=== PATIENT | male | born 1945 | race Caucasian/White ===

== ENCOUNTER 2021-03-10 12:28 | Inpatient (IN) | payer MEDICARE ==
[~2021-03-10] VITALS: Ht 160 cm; Wt 61.2 kg
--- NOTE | 2021-03-10 12:28 | NUR ---
PT BIB [facility] FOR MEDICAL EVAL PRIOR TO GEROPSYCH ADMISSION. ON 5150 HOLD. PER REPORT PT AGGRESSIVE TOWARDS STAFF AND RUNNING THRU TRAFFIC. PT IS AAOX2, NOT IN RESPIRATORY DISTRESS, V/S STABLE, KEPT RESTED AND COMFORTABLE. WILL CONTINUE TO MONITOR.
--- NOTE | 2021-03-10 12:36 | NUR ---
SEEN AND EXAMINED BY .
--- NOTE | 2021-03-10 12:43 | NUR ---
URINE SPECIMEN COLLECTED AND SENT TO LAB.
[2021-03-10] MEDS ORDERED: CEPH250S PO (12:56)
[2021-03-10] MEDS ORDERED: ATOR40TA PO (12:56)
[2021-03-10] MEDS ORDERED: CARV3.12 PO (12:56)
[2021-03-10] MEDS ORDERED: DIVA-78 PO (12:56)
[2021-03-10] MEDS ORDERED: LOSA50TA39 PO (12:56)
[2021-03-10] MEDS ORDERED: CRAN425C6 PO (12:56)
[2021-03-10] MEDS ORDERED: FAMO-131 PO (12:56)
[2021-03-10 13:05] LABS: BILIRUBIN,URINE Negative (NEGATIVE); COLOR,URINE YELLOW (YELLOW); LEUKOCYTE ESTERASE ,URINE Negative (NEGATIVE); NITRITE, URINE Negative (NEGATIVE); PROTEIN,URINE Negative (NEGATIVE); UGLUCOSE Negative (NEGATIVE)
[2021-03-10 13:06] LABS: BACTERIA,URINE Rare /HPF (None Seen); RBC,URINE NONE SEEN /HPF (0-2); SQUAMOUS EPITHELIAL CELL,UR Few /HPF (None Seen); WBC,URINE NONE SEEN /HPF (0-3)
--- NOTE | 2021-03-10 13:08 | NUR ---
MOVE SHEET SUBMITTED AND CALLED FOR BED.
[2021-03-10 13:10] LABS: BASOPHILS # (AUTO) 0.1 K/uL (0.0-0.2); BASOPHILS % (AUTO) 0.8 % (0.0-2.0); EOSINOPHILS % (AUTO) 2.7 % (0.0-6.0); HEMATOCRIT 41 % (39-51); HEMOGLOBIN 13.8 g/dL (13.5-17.5); LYMPHOCYTES # (AUTO) 1.7 K/uL (0.8-4.8); LYMPHOCYTES % (AUTO) 24.9 % (20.0-44.0); MEAN CORPUSCULAR HGB CONC 34 g/dl (31.0-36.0); MEAN CORPUSCULAR VOLUME 95 fL (80-96); MONOCYTES # (AUTO) 0.5 K/uL (0.1-1.30); MONOCYTES % (AUTO) 8.1 % (2.0-12.0); NEUTROPHILS # (AUTO) 4.3 K/uL (1.8-8.9); NEUTROPHILS % (AUTO) 63.5 % (43.0-81.0); PLATELET COUNT (AUTO) 177 K/uL (150-450); RED BLOOD CELL COUNT(AUTO) 4.34 MIL/uL (4.5-6.0); WHITE BLOOD COUNT (AUTO) 6.7 K/uL (4.3-11.0)
[2021-03-10 13:14] LABS: CARBON DIOXIDE 28 mmol/L (21-32); CHLORIDE 107 mmol/L (98-107); GLUCOSE 104 mg/dL (74-106); POTASSIUM 3.8 mmol/L (3.5-5.1); SODIUM SERUM 144 mmol/L (136-145); UREA NITROGEN, BLOOD 18 mg/dL (7-18)
[2021-03-10 13:20] LABS: ALANINE AMINOTRANSFERASE 49 U/L (12-78); ALBUMIN 4.1 g/dL (3.4-5.0); ALCOHOL, BLOOD < 3 mg/dL (0-0); ALKALINE PHOSPHATASE 79 U/L (46-116); ASPARTATE AMINOTRANSFERASE 31 U/L (15-37); BILIRUBIN,DIRECT 0.2 mg/dL (0.0-0.2); BILIRUBIN,TOTAL 0.7 mg/dL (0.2-1.0); TOTAL PROTEIN, SERUM 7.1 g/dL (6.4-8.2)
[2021-03-10 13:21] LABS: ACETAMINOPHEN < 2 ug/ml (10-30)
--- NOTE | 2021-03-10 13:47 | NUR ---
GOT BED 214-B
--- NOTE | 2021-03-10 13:49 | NUR ---
REPORT GIVEN TO MATTIE DIAZ FOR MINI.
[2021-03-10 14:51] VITALS: BP 146/77
[2021-03-10] MEDS ORDERED: MAG HYDROX/AL HYDROX/SIMETH 30 ML UDC PO PRN (15:00)
[2021-03-10] MEDS ORDERED: MAGNESIUM HYDROXIDE 30 ML UDC PO PRN (15:00)
[2021-03-10] MEDS ORDERED: BLOOD SUGAR DIAGNOSTIC 1 EACH STRIP IN ONE (15:00)
[2021-03-10] MEDS ORDERED: ACETAMINOPHEN 325 MG TABLET PO PRN (15:00)
--- NOTE | 2021-03-10 15:48 | NUR ---
GPS/RN RECEIVED PT FROM ER 0N 5150 FOR DTS ORIGINALLY FROM [facility] WHERE HE BECOME AGGRESSIVE. PT IS AMBULATORY NO ACUTE DISTRESS NOTED. ON FACE TO FACE ASSESSMENT NO SI OR HI REPORTED.DR DON CALLED FOR THE ORDERS. ORDERS RECEIVED AND CARRIED OUT. DR JANE MADE AWARE OF ADMISSION.UNABLE TO NOTIFY THE FAMILY MEMBER NOBODY BIBLICAL STUDIES PROFESSOR THE PHONE AND MESSAGE BOX IS FULL. PT STATES TO BE FULLY VACCINATED WITH MODERNA VACCINE.PROPERTY CHECKED FOR CONTRABAND AND VALUABLES SENT TO SAFE.
[2021-03-10 16:00] VITALS: BP 134/74
[2021-03-10 20:37] VITALS: BP 155/90
[2021-03-10] MEDS: TEMAZEPAM 7.5 MG CAPSULE PO PRN (20:48)
[2021-03-10] MEDS: ATORVASTATIN 40 MG TABLET PO SCH (21:25)
[2021-03-11 07:35] LABS: CHOLESTEROL 89 mg/dL (<200); HDL CHOLESTEROL 43 mg/dL (40-60); LDL 43 mg/dL (0-99); TRIGLYCERIDES 58 mg/dL (30-150)
[2021-03-11 08:00] VITALS: BP 132/55
[2021-03-11] MEDS: FAMOTIDINE (20 MG) 20 MG TABLET PO SCH (08:26)
[2021-03-11] MEDS: CARVEDILOL 3.125 MG TABLET PO SCH (08:27)
[2021-03-11 08:38] LABS: ALBUMIN 3.5 g/dL (3.4-5.0); BILIRUBIN,TOTAL 0.6 mg/dL (0.2-1.0); CALCIUM, SERUM 8.9 mg/dL (8.5-10.1); POTASSIUM 3.2 mmol/L (3.5-5.1); TOTAL PROTEIN, SERUM 6.1 g/dL (6.4-8.2)
[2021-03-11] MEDS ORDERED: POTASSIUM CHLORIDE 20 MEQ TAB.PRT.SR PO ONE ×2 (09:00→09:21)
[2021-03-11] MEDS: LOSARTAN POTASSIUM 50 MG TABLET PO SCH (09:17)
[2021-03-11] MEDS: LORAZEPAM 0.5 MG TABLET PO PRN (14:33)
--- NOTE | 2021-03-11 14:33 | NUR ---
RN-CO: ATIVAN 0.5 MG PO FOR AGITATION.
[2021-03-11 16:00] VITALS: BP 109/67
[2021-03-11 20:00] VITALS: BP 120/76
[2021-03-11 20:40] VITALS: BP 120/76
[2021-03-11] MEDS: ATORVASTATIN 40 MG TABLET PO SCH (21:16)
[2021-03-11] MEDS: TEMAZEPAM 7.5 MG CAPSULE PO PRN (21:45)
--- NOTE | 2021-03-11 21:45 | NUR ---
GPS-RN NOTES: INSOMNIA PATIENT C/O INABILITY TO SLEEP. PRN RESTORIL 7.5MG PO GIVEN ORDERED. WILL CONTINUE TO MONITOR.
[2021-03-12 08:00] VITALS: BP 140/75
[2021-03-12] MEDS: FAMOTIDINE (20 MG) 20 MG TABLET PO SCH (08:32)
[2021-03-12] MEDS: LOSARTAN POTASSIUM 50 MG TABLET PO SCH (08:32)
[2021-03-12] MEDS: CARVEDILOL 3.125 MG TABLET PO SCH (08:32)
[2021-03-12] MEDS ORDERED: ARIPIPRAZOLE 2 MG TABLET PO SCH (09:00)
--- NOTE | 2021-03-12 09:00 | NUR ---
RN NOTE- PT ALERT ORIENTED TO PERSON PLACE CONFUSED , MED COMPLIANT, NEEDS ATTENDED. ISOLATIVE
[2021-03-12 10:09] LABS: CALCIUM, SERUM 9.7 mg/dL (8.5-10.1); CREATININE 1.1 mg/dL (0.6-1.3); POTASSIUM 4.3 mmol/L (3.5-5.1)
--- NOTE | 2021-03-12 15:39 | NUR ---
Initial Discharge Plan: The pt. currently resides at [facility] [[address] [address]; [phone]]. Per pt. he would like to return there once ready for D.C. ALEX spoke with Alessandra from Admissions at [facility] who stated that the pt. can return once ready. ALEX will continue to collaborate with Psychiatrist to form a safe & proper D/C plan.
--- NOTE | 2021-03-12 15:39 | NUR ---
Point of Contact: ALEX called the pt.'s Point of Contact: Lilli Blue [phone] to gather collateral information and left voicemail with SW call back number.
[2021-03-12 16:00] VITALS: BP 123/71
[2021-03-12 20:00] VITALS: BP 123/59
[2021-03-12] MEDS: ATORVASTATIN 40 MG TABLET PO SCH (21:24)
[2021-03-12] MEDS: TEMAZEPAM 7.5 MG CAPSULE PO PRN (21:24)
[2021-03-12] MEDS: DIVALPROEX SODIUM 500 MG TABLET.DR PO SCH (21:24)
--- NOTE | 2021-03-12 21:24 | NUR ---
GPS RN NOTE PT REQUESTING FOR SLEEP MED. RESTORIL 7.5 MG PO GIVEN. CONTINUE TO MONITOR HIM.
--- NOTE | 2021-03-12 22:24 | NUR ---
GPS RN NOTE PT FALL BACK TO SLEEP
[2021-03-13 08:00] VITALS: BP 138/70
[2021-03-13] MEDS: LOSARTAN POTASSIUM 50 MG TABLET PO SCH (08:09)
[2021-03-13] MEDS: CARVEDILOL 3.125 MG TABLET PO SCH (08:09)
[2021-03-13] MEDS: DIVALPROEX SODIUM 500 MG TABLET.DR PO SCH ×2 (08:09→17:04)
[2021-03-13] MEDS: FAMOTIDINE (20 MG) 20 MG TABLET PO SCH (08:09)
[2021-03-13] MEDS: ARIPIPRAZOLE 2 MG TABLET PO SCH ×2 (08:13→17:04)
--- NOTE | 2021-03-13 09:00 | NUR ---
RN NOTE- UNCHANGED PT ALERT ORIENTED TO PERSON PLACE CONFUSED , MED COMPLIANT, NEEDS ATTENDED. ISOLATIVE
[2021-03-13 16:00] VITALS: BP 131/68
[2021-03-13 20:00] VITALS: BP 138/65
[2021-03-13] MEDS: ATORVASTATIN 40 MG TABLET PO SCH (21:41)
[2021-03-13] MEDS: TEMAZEPAM 7.5 MG CAPSULE PO PRN (21:41)
[2021-03-14] MEDS: FAMOTIDINE (20 MG) 20 MG TABLET PO SCH ×2 (07:30→08:06)
[2021-03-14 08:00] VITALS: BP 131/76
[2021-03-14] MEDS: DIVALPROEX SODIUM 500 MG TABLET.DR PO SCH ×3 (08:07→16:43)
[2021-03-14] MEDS: ARIPIPRAZOLE 2 MG TABLET PO SCH ×3 (08:07→16:42)
[2021-03-14] MEDS: LOSARTAN POTASSIUM 50 MG TABLET PO SCH ×2 (08:08→08:42)
[2021-03-14] MEDS: CARVEDILOL 3.125 MG TABLET PO SCH ×2 (08:08→08:41)
--- NOTE | 2021-03-14 08:43 | NUR ---
RN-CO: PATIENT GOT UPSET WHEN HIS MEDICATIONS WAS OFFERED, HE STATED " I DON'T NEED THAT ROZ MEDICATIONS!". REFUSED AGAIN WHEN I OFFERED THE SECOND TIME.
[2021-03-14 16:00] VITALS: BP 116/86
--- NOTE | 2021-03-14 16:43 | NUR ---
RN-CO: PT REFUSED HIS ABILIFY AND DEPAKOTE , HE STATED " I WON'T TAKE IT, YOU GUYS ARE SCREWING ME WITH THOSE MEDICATIONS." EXPLAINED THE BENEFITS BUT STILL REFUSED.
[2021-03-14] MEDS: LORAZEPAM 0.5 MG TABLET PO PRN ×2 (20:14→20:17)
--- NOTE | 2021-03-14 20:19 | NUR ---
GPS-RN NOTES: OFFERED PATIENT PRN ATIVAN 0.5MG PO DUE TO ANXIETY BUT PATIENT REFUSED. HE STATED "THEY POISONED ME LAST TIME, I DON'T WANT TO TAKE IT, FLUSH IT IN THE TOILET". EXPLAINED BENEFITS BUT PATIENT STILL REFUSED. WILL CONTINUE TO MONITOR.
[2021-03-14 20:33] VITALS: BP 159/86
[2021-03-14] MEDS: ATORVASTATIN 40 MG TABLET PO SCH (21:48)
--- NOTE | 2021-03-14 21:48 | NUR ---
GPS-RN NOTES: MED REFUSAL PATIENT REFUSED SCHEDULED ATORVASTATIN FOR TONIGHT. EXPLAINED RISKS AND BENEFITS BUT PATIENT CONTINUED TO REFUSE.
[2021-03-15] MEDS: FAMOTIDINE (20 MG) 20 MG TABLET PO SCH (07:30)
[2021-03-15 07:48] LABS: CALCIUM, SERUM 9.3 mg/dL (8.5-10.1); CREATININE 0.9 mg/dL (0.6-1.3); POTASSIUM 4.1 mmol/L (3.5-5.1)
[2021-03-15 08:00] VITALS: BP 142/69
[2021-03-15] MEDS: LOSARTAN POTASSIUM 50 MG TABLET PO SCH (09:00)
[2021-03-15] MEDS: ARIPIPRAZOLE 2 MG TABLET PO SCH ×2 (09:00→17:00)
[2021-03-15] MEDS: CARVEDILOL 3.125 MG TABLET PO SCH (09:00)
[2021-03-15] MEDS: DIVALPROEX SODIUM 500 MG TABLET.DR PO SCH ×2 (09:00→17:00)
--- NOTE | 2021-03-15 09:05 | NUR ---
RN-NOTES PATIENT REFUSED ALL AM MEDICATIONS DESPITE EXPLANATIONS RISK AND BENEFITS, STATED" I'M NOT GOING TO TAKE ANY MEDICATIONS AT ALL ". OFFERED X3 BUT PATIENT GETS ANGRY.
--- NOTE | 2021-03-15 11:33 | NUR ---
Probable Cause Hearing Pt's 5250 hold has been upheld for grave disability.
--- NOTE | 2021-03-15 14:53 | NUR ---
Received a call from Mimi from the court, Evelin hearing scheduled 03/16/21 @ 1:[address] Teixeira made aware.
--- NOTE | 2021-03-15 17:02 | NUR ---
RN-NOTES PATIENT CONT. REFUSING ALL 1700 MEDICATIONS DESPITE EXPLANATIONS RISK AND BENEFITS. OFFERED X3 .
[2021-03-15 20:00] VITALS: BP 164/85
[2021-03-15] MEDS: ATORVASTATIN 40 MG TABLET PO SCH (21:27)
[2021-03-16] MEDS: FAMOTIDINE (20 MG) 20 MG TABLET PO SCH (07:30)
[2021-03-16 08:00] VITALS: BP 146/76
[2021-03-16] MEDS: ARIPIPRAZOLE 2 MG TABLET PO SCH ×2 (09:00→17:00)
[2021-03-16] MEDS: DIVALPROEX SODIUM 500 MG TABLET.DR PO SCH ×2 (09:00→17:00)
[2021-03-16] MEDS: LOSARTAN POTASSIUM 50 MG TABLET PO SCH (09:00)
[2021-03-16] MEDS: CARVEDILOL 3.125 MG TABLET PO SCH (09:00)
--- NOTE | 2021-03-16 09:04 | NUR ---
GPS/RN PT REFUSED 0900 MEDS OFFERED X3
--- NOTE | 2021-03-16 15:47 | NUR ---
D/C Planning: Pt. has been cleared by psychiatrist for discharge back to [facility] [[address] [address] [facility] [address]; [phone]] on 03/19/2021. ALEX called [facility] and apoke to Alessandra who confirmed pt. can return on 03/19/2021. ALEX attempted to call pt.'s responsible republican Lilli [facility] [phone] and ALEX left voicemail informing them that pt. will be discharged on 03/19/2021 and aksed that family call SW back by 9 am on if they are not agreeable to D/C. ALEX notified pt. of discharge and he is agreeable.
[2021-03-16] MEDS ORDERED: OLANZAPINE 10 MG VIAL IM SCH (16:00)
[2021-03-16] MEDS ORDERED: OLANZAPINE 10 MG VIAL IM PRN (16:30)
[2021-03-16 20:16] VITALS: BP 123/69
[2021-03-16] MEDS: ATORVASTATIN 40 MG TABLET PO SCH (21:01)
[2021-03-16] MEDS: TEMAZEPAM 7.5 MG CAPSULE PO PRN (21:01)
--- NOTE | 2021-03-17 06:03 | NUR ---
GPS REGIONAL RETAIL SALES MANAGER Note: Pt compliant with his medication during shift, cooperative, had PRN Restoril @ 2101- effective, slept good 8 hrs during shift, no s/sx of pain or discomfort noted, no s/sx of acute distress noted. VSS , pt's needs attended and anticipated. Cont to monitor for safety.
[2021-03-17 08:00] VITALS: BP 132/72
[2021-03-17] MEDS: DIVALPROEX SODIUM 500 MG TABLET.DR PO SCH ×2 (08:53→16:39)
[2021-03-17] MEDS: FAMOTIDINE (20 MG) 20 MG TABLET PO SCH (08:53)
[2021-03-17] MEDS: LOSARTAN POTASSIUM 50 MG TABLET PO SCH (08:54)
[2021-03-17] MEDS: CARVEDILOL 3.125 MG TABLET PO SCH (08:54)
[2021-03-17] MEDS: ARIPIPRAZOLE 2 MG TABLET PO SCH ×2 (08:54→16:39)
[2021-03-17 16:00] VITALS: BP 141/65
[2021-03-17 20:40] VITALS: BP 125/68
[2021-03-17] MEDS: ATORVASTATIN 40 MG TABLET PO SCH (21:41)
[2021-03-18 08:00] VITALS: BP 144/61
[2021-03-18] MEDS: DIVALPROEX SODIUM 500 MG TABLET.DR PO SCH ×2 (08:48→17:42)
[2021-03-18] MEDS: FAMOTIDINE (20 MG) 20 MG TABLET PO SCH (08:49)
[2021-03-18] MEDS: LOSARTAN POTASSIUM 50 MG TABLET PO SCH (08:49)
[2021-03-18] MEDS: ARIPIPRAZOLE 2 MG TABLET PO SCH ×2 (08:49→17:42)
[2021-03-18] MEDS: CARVEDILOL 3.125 MG TABLET PO SCH (08:50)
[2021-03-18 16:00] VITALS: BP 112/55
[2021-03-18 20:08] VITALS: BP 116/76
[2021-03-18] MEDS: ATORVASTATIN 40 MG TABLET PO SCH (21:13)
[2021-03-18 21:28] VITALS: BP 116/76
--- NOTE | 2021-03-19 06:54 | NUR ---
RN NOTE COVID SWAB SENT TO LAB FOR PLACEMENT.
[2021-03-19 08:00] VITALS: BP 131/70
[2021-03-19] MEDS: DIVALPROEX SODIUM 500 MG TABLET.DR PO SCH (08:46)
[2021-03-19] MEDS: FAMOTIDINE (20 MG) 20 MG TABLET PO SCH (08:47)
[2021-03-19] MEDS: CARVEDILOL 3.125 MG TABLET PO SCH (08:47)
[2021-03-19 08:48] VITALS: BP 131/70
[2021-03-19] MEDS: LOSARTAN POTASSIUM 50 MG TABLET PO SCH (08:48)
[2021-03-19] MEDS ORDERED: ARIPIPRAZOLE 5 MG TABLET PO SCH (09:00)
--- NOTE | 2021-03-19 13:23 | NUR ---
Discharge Note: Pt. will be discharged back to [facility] [[address] [facility] [address]; [phone]] on 03/19/2021. Pt. will be transported via ambulance at 2 pm. SW left voicemail notifying pt.s family Lilli Unk [phone] of discharge. Currently, the pt. appears to be in a euthymic mood and presented with a calm affect. Pt. denies both suicidal and homicidal ideation as well as auditory and visual hallucinations. Pt. appears to be alert and oriented x2. Pt. is ambulatory with steady gait. Pt appears to be well-groomed and appropriately dressed. Pt will continue to be under the care of psychiatrist, Dr. Mancilla, located at [[address], [address] [place] [address]; TEL: ] and medical science liaison, Dr. Sai Cisneros, located at [phone]. The Choice of vendor form and the multidisciplinary exit care form was done, printed, signed, and given to the patient.
--- NOTE | 2021-03-19 13:53 | NUR ---
RN NOTE: REPORT CALLED TO HOLLIE PABLO AT [facility]
--- NOTE | 2021-03-19 14:40 | NUR ---
MEDICAL OFFICER NOTE: 75 YEAR OLD MALE DISCHARGED TO [facility] IN STABLE CONDITION. COMPLIANT WITH MEDICATIONS, COOPERATIVE WITH TREATMENT PLANS. PATIENT DENIES SI/HI AND INSTRUCTED TO GO TO THE CLOSEST ER IF DEVELOPING SI/HI. BEHAVIOR IMPROVED, PSYCHIATRIC TREATMENT PLANS MET, MEDICAL TREATMENT PLANS DEFERRED FOR CONTINUAL MONITORING. EDUCATED PT ABOUT AFTER CARE AND COPY PROVIDED. RETURNED PERSONAL BELONGINGS AND VALUABLES RETURNED TO PT. EDUCATED PT ABOUT AFTERCARE AND EXIT CARE AND COPY PROVIDED. MEDICATIONS RECONCILED WITH [facility]IM[facility]IAN MOBLEY AND DR. JAY HERRERA. REPORT CALLED TO [facility] FOR CONTINUITY OF CARE. PT UNABLE TO SIGN PAPERWORK DUE TO CONFUSION. SKIN INTACT ON ADMIT AND DISCHARGE. PATIENT LEFT THE UNIT VIA GURNEY WITH EMS PRESENT AT 1420.
== END 2021-03-19 14:40 | DRG 885 ==
LOC: ER 12:34 → GPS 13:48
PROVIDERS: ADMIT Psychiatry & Neurology Psychosomatic Medicine; ATTEND Family Medicine
DX: F25.9 Schizoaffective disorder, unspecified (principal); E87.0 Hyperosmolality and hypernatremia; F23 Brief psychotic disorder; F29 Unspecified psychosis not due to a substance or known physiological condition; E78.5 Hyperlipidemia, unspecified; E87.6 Hypokalemia; G30.9 Alzheimer's disease, unspecified; F02.80 Dementia in other diseases classified elsewhere, unspecified severity, without behavioral disturbance, psychotic disturbance, mood disturbance, and anxiety; I10 Essential (primary) hypertension; Z73.6 Limitation of activities due to disability; E86.1 Hypovolemia; Z20.822 Contact with and (suspected) exposure to COVID-19
CPT/HCPCS: 36415; 80048-TC; 80053-TC; 80061-TC; 80076-TC; 81001; 82962-TC; 85025-TC; 87081-TC; G0480; J3490

== ENCOUNTER 2021-11-20 19:29 | Inpatient (IN) | payer MEDICARE ==
[~2021-11-20] VITALS: Ht 165.1 cm; Wt 59.0 kg
[~2021-11-20 19:29] MED LIST: ATOR40TA PO; CARV3.12 PO; CEPH250S PO; CRAN425C6 PO; DIVA-78 PO; FAMO-131 PO; LOSA50TA39 PO
--- NOTE | 2021-11-20 20:05 | NUR ---
TAYLOR FROM SNF TO ER BED 11. AAOX4. NOT IN DISTRESSED. BROUGHT IN FOR INCREASED AGITATION TOWARDS STAFF AT THE FACILITY. PT DENIES ANY SUICIDAL NOR HOMICIDAL IDEATION. PT IS GOWN. COVID SWAB DONE AND SENT TO LAB
[2021-11-20 20:17] LABS: BASOPHILS % (AUTO) 0.6 % (0.0-2.0); EOSINOPHILS % (AUTO) 1.3 % (0.0-6.0); HEMATOCRIT 40 % (39-51); HEMOGLOBIN 13.7 g/dL (13.5-17.5); LYMPHOCYTES # (AUTO) 1.3 K/uL (0.8-4.8); LYMPHOCYTES % (AUTO) 25.2 % (20.0-44.0); MEAN CORPUSCULAR HGB CONC 34 g/dl (31.0-36.0); MEAN CORPUSCULAR VOLUME 96 fL (80-96); MONOCYTES # (AUTO) 0.7 K/uL (0.1-1.30); MONOCYTES % (AUTO) 12.5 % (2.0-12.0); NEUTROPHILS # (AUTO) 3.2 K/uL (1.8-8.9); NEUTROPHILS % (AUTO) 60.4 % (43.0-81.0); PLATELET COUNT (AUTO) 140 K/uL (150-450); RED BLOOD CELL COUNT(AUTO) 4.23 MIL/uL (4.5-6.0); WHITE BLOOD COUNT (AUTO) 5.3 K/uL (4.3-11.0)
--- NOTE | 2021-11-20 20:17 | NUR ---
COVID SWAB DONE AND SENT TO LAB
--- NOTE | 2021-11-20 20:31 | NUR ---
URINE SPECIMEN COLLECTED AND SENT TO LAB.
[2021-11-20 20:35] LABS: ACETAMINOPHEN 8 ug/ml (10-30); ALANINE AMINOTRANSFERASE 20 U/L (12-78); ALBUMIN 3.7 g/dL (3.4-5.0); ALKALINE PHOSPHATASE 63 U/L (46-116); ASPARTATE AMINOTRANSFERASE 16 U/L (15-37); BILIRUBIN,DIRECT 0.2 mg/dL (0.0-0.2); BILIRUBIN,TOTAL 0.6 mg/dL (0.2-1.0); CHLORIDE 105 mmol/L (98-107); CREATININE 1.2 mg/dL (0.6-1.3); GLUCOSE 109 mg/dL (74-106); POTASSIUM 3.3 mmol/L (3.5-5.1); SODIUM SERUM 141 mmol/L (136-145); TOTAL PROTEIN, SERUM 6.4 g/dL (6.4-8.2); UREA NITROGEN, BLOOD 24 mg/dL (7-18)
[2021-11-20 20:47] LABS: BILIRUBIN,URINE NEGATIVE (NEGATIVE); COLOR,URINE YELLOW (YELLOW); LEUKOCYTE ESTERASE ,URINE NEGATIVE (NEGATIVE); NITRITE, URINE NEGATIVE (NEGATIVE); PROTEIN,URINE NEGATIVE (NEGATIVE); UGLUCOSE NEGATIVE (NEGATIVE)
[2021-11-20 20:57] LABS: ALCOHOL, BLOOD < 3 mg/dL (0-0)
[2021-11-20 21:04] LABS: BACTERIA,URINE Rare /HPF (None Seen); RBC,URINE 0-2 /HPF (0-2); SQUAMOUS EPITHELIAL CELL,UR Few /HPF (None Seen)
[2021-11-20 21:19] LABS: CARBON DIOXIDE 28 mmol/L (21-32)
[2021-11-20 21:20] LABS: CALCIUM, SERUM 9.3 mg/dL (8.5-10.1)
--- NOTE | 2021-11-20 21:30 | NUR ---
MRSA SWAB COLLECTED AND SENT TO LAB. PATIENT'S BELONGINGS LIST DONE.
--- NOTE | 2021-11-20 21:54 | NUR ---
CALLED FOR REPORT RN NOT READY FOR REPORT.
--- NOTE | 2021-11-20 22:15 | NUR ---
REPORT GIVEN TO EMILY CHISHOLM
--- NOTE | 2021-11-20 22:40 | NUR ---
PT TRANSFERRED TO GPS
[2021-11-20] MEDS ORDERED: MAGNESIUM HYDROXIDE 30 ML UDC PO PRN (23:30)
[2021-11-20] MEDS ORDERED: POTASSIUM CHLORIDE 10 MEQ TABLET.SA PO ONE (23:30)
[2021-11-20] MEDS ORDERED: TEMAZEPAM 7.5 MG CAPSULE PO PRN (23:30)
[2021-11-20] MEDS ORDERED: BLOOD SUGAR DIAGNOSTIC 1 EACH STRIP IN ONE (23:30)
[2021-11-20] MEDS ORDERED: MAG HYDROX/AL HYDROX/SIMETH 30 ML UDC PO PRN (23:30)
--- NOTE | 2021-11-21 04:18 | NUR ---
GPS TRADE UNION OFFICIAL NOTES: RECEIVED A 76 Y/O MALE FROM ER ORIGINALLY FROM SNF. PATIENT IS ON A 5150 FOR GD. HOLD WAS PLACED ON 11/20/21 AT 2117. PER HOLD, PATIENT WAS BROUGHT TO [facility] ER FROM [facility] D/T INCREASED AGITATION, AGGRESSIVE BEHAVIOR TOWARDS STAFF AND REFUSING CARE. UPON FACE TO FACE EVALUATION, PATIENT IS ALERT AND ORIENTED X1, DISORIENTED, DISORGANIZED AND CONFUSED. PATIENT WAS GIVING INAPPROPRIATE ANSWERS TO QUESTIONS, MUMBLING AND PREOCCUPIED. PATIENT REFUSED TO SIGN ALL ADMISSION PAPERWORK. SKIN ASSESSMENT DONE/SKIN INTACT. PATIENT DENIES SI AT THIS TIME. DENIES PAIN. BS83MG/DL, MRSA PENDING. PATIENT HANDBOOK AND PRESCRIPTION MEDICATIONS GUIDE GIVEN TO PATIENT. BELONGINGS WERE INVENTORIED AND CHECKED FOR CONTRABAND. PATIENT OFFERED PNEUMONIA VACCINE BUT PATIENT REFUSED. PATIENT IS UNDER THE PSYCHIATRIC CARE OF DR. ESQUIVEL AND MEDICAL CARE OF MAXIMILIAN. BED IN LOW LOCKED POSITION. SIDE RAILS UP X2. SAFETY PRECAUTIONS MAINTAINED. ALL PATIENT CARE NEEDS HAVE BEEN MET ANTICIPATED. WILL CONTINUE TO MONITOR Q15 MINS FOR MOOD, SAFETY AND BEHAVIOR AND ENDORSE TO AM SHIFT.
[2021-11-21 05:41] VITALS: BP 134/72
[2021-11-21 07:26] LABS: ALANINE AMINOTRANSFERASE 19 U/L (12-78); ALBUMIN 3.4 g/dL (3.4-5.0); ALKALINE PHOSPHATASE 58 U/L (46-116); ASPARTATE AMINOTRANSFERASE 17 U/L (15-37); BILIRUBIN,TOTAL 0.6 mg/dL (0.2-1.0); CARBON DIOXIDE 16 mmol/L (21-32); CHLORIDE 107 mmol/L (98-107); GLUCOSE 87 mg/dL (74-106); POTASSIUM 3.5 mmol/L (3.5-5.1); SODIUM SERUM 142 mmol/L (136-145); UREA NITROGEN, BLOOD 22 mg/dL (7-18)
[2021-11-21 07:27] LABS: THYROID STIMULATING HORMONE 0.559 uIU/mL (0.358-3.74)
[2021-11-21 08:00] VITALS: BP 129/68
[2021-11-21] MEDS ORDERED: DIVALPROEX SODIUM 500 MG TABLET.DR PO SCH (09:00)
[2021-11-21] MEDS: DIVALPROEX SODIUM 125 MG CAP.SPRINK PO SCH ×2 (10:11→21:56)
[2021-11-21] MEDS: FAMOTIDINE (20 MG) 20 MG TABLET PO SCH (10:11)
[2021-11-21] MEDS: LOSARTAN POTASSIUM 50 MG TABLET PO SCH (10:12)
[2021-11-21] MEDS: CARVEDILOL 3.125 MG TABLET PO SCH (10:13)
[2021-11-21 11:09] LABS: CALCIUM, SERUM 9.1 mg/dL (8.5-10.1)
--- NOTE | 2021-11-21 12:58 | NUR ---
ALEX Initial Discharge Plan: Pt currently resides at [facility] located at [facility] [place] [address]; ([phone]). ALEX spoke with Octavio Diallo ([phone]) to confirm if pt is welcomed back. Per Octavio, she stated that pt will be transferred to [facility]. ALEX reached out to [facility], lisa Cheema ([phone]) to see if pt is accepted. ALEX will work with the MD, family, and pt to help coordinate appropriate dc.
--- NOTE | 2021-11-21 12:58 | NUR ---
ALEX Clinical Note: Pt placed on a 5150 for GD. Pt was aggressive at his facility and was uncooperative. Pt currently resides at [facility] located at [address] [place] [address]; ([phone]). ALEX spoke with Octavio Diallo ([phone]) to confirm if pt is welcomed back. Per Octavio, she stated that pt will be transferred to [facility]. ALEX reached out to [facility], lisa Cheema ([phone]) to see if pt is accepted.
--- NOTE | 2021-11-21 12:59 | NUR ---
Treatment Plan: Pt refused to sign treatment plan and was very confused.
--- NOTE | 2021-11-21 13:21 | NUR ---
ALEX Family Contact: SW attempted to contact pt's son Anderson ([phone]) and was unable to leave a voicemail due to mailbox being full.
--- NOTE | 2021-11-21 14:50 | NUR ---
VERY NEEDY,OUT AT DESK OFTEN.
[2021-11-21 16:00] VITALS: BP 104/57
[2021-11-21] MEDS: LORAZEPAM 0.5 MG TABLET PO PRN (17:52)
--- NOTE | 2021-11-21 17:59 | NUR ---
GIVEN ATIVAN FOR AGITATION.
[2021-11-21 19:58] VITALS: BP 118/64
[2021-11-21 20:00] VITALS: BP 118/64
[2021-11-21] MEDS: QUETIAPINE FUMARATE 25 MG TABLET PO SCH (21:56)
[2021-11-21] MEDS: ATORVASTATIN 40 MG TABLET PO SCH (22:01)
[2021-11-22] MEDS: LORAZEPAM 0.5 MG TABLET PO PRN (00:25)
--- NOTE | 2021-11-22 00:30 | NUR ---
placed in a ileana chair earlier d/t sleeping medication was given and for safety . refusing to stay in bed. he wonders into patients rooms. in the ileana chair he took the sheet i threw over the chair off and whipped it around at the nurses called security mr. SARGENT WANTED THE people around him arrested took po ativan now will monitor
--- NOTE | 2021-11-22 05:54 | NUR ---
closing notes: when placed in bed he will get OOB and walk in the corridors (unsteady) on his legs, and he wanders into other patients rooms. When redirected out of the room he will swing a closed fist at the nurse and tell her to get away, I need to grab him from falling over. With the assist two nurse able to place him into a gerichair and from there he pushed himself around the corridor. He falls asleep in the chair and takes a nap then wakes up and he is up and down the corridor in the gerichair Fluid offered Ativan given at 0030 for agitation hitting the nurses and using the sheet to whip it at here and shaking his fist at me
[2021-11-22 08:00] VITALS: BP 120/67
[2021-11-22] MEDS: FAMOTIDINE (20 MG) 20 MG TABLET PO SCH (08:46)
[2021-11-22] MEDS: LOSARTAN POTASSIUM 50 MG TABLET PO SCH (08:46)
[2021-11-22] MEDS: DIVALPROEX SODIUM 125 MG CAP.SPRINK PO SCH ×2 (08:46→20:34)
[2021-11-22] MEDS: CARVEDILOL 3.125 MG TABLET PO SCH (08:47)
--- NOTE | 2021-11-22 10:35 | NUR ---
SNF Contact: ALEX spoke with Deni from [facility] ([phone]) who stated that they are unable to accept pt due to financial issues. ALEX contacted Octavio ([phone]) from [facility] where pt is initially from and stated that [facility] denied pt. She requested for this racebook writer to fax to [facility] ([phone]). ALEX faxed pt's clinicals.
--- NOTE | 2021-11-22 11:08 | NUR ---
ALEX Family Contact: SW attempted to contact pt's son Anderson ([phone]) and was unable to leave a voicemail due to mailbox being full.
--- NOTE | 2021-11-22 11:30 | NUR ---
RN Notes: Received pt. in the ileana chair, confused, disorganized and irritable. Ate 75% for breakfast, compliant on meds. Pt. is confused and disorganized, pt. was reoriented to day, date, person, palce and situation and encouraged to attend group activity. Needs attended and will continue to monitor for safety.
[2021-11-22 16:00] VITALS: BP 138/81
[2021-11-22 20:00] VITALS: BP 132/72
--- NOTE | 2021-11-22 20:03 | NUR ---
RN NOTES: PATIENT IN BED RESTING , NO S/SX OF ACUTE DISTRESS NOTED. EASILY AGITATED, PARANOID, DISORGNIZED, DISHEVELED,WANDRING AROUND THE UNIT NEEDS FREQUENTLY REDIRECTIONS , NEEDY,HYPERVERBAL, UNKEMPT ,ENCOURAGED PT. TO VERBALIZATION OF THOUGHTS AND FEELINGS. SAFETY PRECAUTIONS IN PLACE. WILL CONTINUE TO MONITOR Q15MIN ROUNDS FOR SAFETY AND BEHAVIOR.
[2021-11-22] MEDS: QUETIAPINE FUMARATE 25 MG TABLET PO SCH (21:11)
[2021-11-22] MEDS: ATORVASTATIN 40 MG TABLET PO SCH (21:11)
--- NOTE | 2021-11-22 23:04 | NUR ---
GPS RN NOTE: MAALOX GIVEN PATIENT C/O INDIGESTION/STOMACH UPSET. PRN MAALOX 30 ML PO GIVEN. WILL CONTINUE TO MONITOR.
--- NOTE | 2021-11-23 04:00 | NUR ---
RN NOTES: PATIENT IN BED RESTING , NO S/SX OF ACUTE DISTRESS NOTED. DENIES ANY PAIN DISCOMFORT AT THIS TIME. SAFETY PRECAUTIONS IN PLACE. WILL CONTINUE TO MONITOR Q15MIN ROUNDS FOR SAFETY AND BEHAVIOR.
[2021-11-23 08:00] VITALS: BP 138/76
--- NOTE | 2021-11-23 09:00 | NUR ---
GPS/RN RECEIVED PT RESTING IN HIS ROOM, NO S/SX OF ACUTE DISTRESS NOTED,PARANOID, DISORGANIZED, DISHEVELED, NEEDS FREQUENT REDIRECTIONS.DAILY MEDS COMPLIANT SAFETY PRECAUTIONS IN PLACE.ALL NEEDS ATTENDED AND ANTICIPATED WILL CONTINUE TO MONITOR Q15MIN ROUNDS FOR SAFETY AND BEHAVIOR.
--- NOTE | 2021-11-23 09:34 | NUR ---
Court Notification: SW attempted to contact pt's son Anderson ([phone]) to notify of [phone], however, he does not have a mailbox to leave a voicemail.
[2021-11-23] MEDS: CARVEDILOL 3.125 MG TABLET PO SCH (09:46)
[2021-11-23] MEDS: DIVALPROEX SODIUM 125 MG CAP.SPRINK PO SCH ×2 (09:46→20:55)
[2021-11-23] MEDS: FAMOTIDINE (20 MG) 20 MG TABLET PO SCH (09:46)
[2021-11-23] MEDS: LOSARTAN POTASSIUM 50 MG TABLET PO SCH (09:47)
--- NOTE | 2021-11-23 11:57 | NUR ---
Court Hearing: Patient's court hearing for 2580 was today and it was upheld for GD.
[2021-11-23 16:00] VITALS: BP 127/65
[2021-11-23 20:00] VITALS: BP 138/68
--- NOTE | 2021-11-23 20:05 | NUR ---
RN NOTES: PATIENT WATCHING TV IN ACTIVITY ROOM , NO S/SX OF ACUTE DISTRESS NOTED. EASILY AGITATED, PARANOID, CONFUSED, TALKING TO SELF, DISORGNIZED, DISHEVELED,WANDRING AROUND THE UNIT NEEDS FREQUENTLY REDIRECTIONS , NEEDY,HYPERVERBAL, UNKEMPT ,ENCOURAGED PT. TO VERBALIZATION OF THOUGHTS AND FEELINGS. SAFETY PRECAUTIONS IN PLACE. WILL CONTINUE TO MONITOR Q15MIN ROUNDS FOR SAFETY AND BEHAVIOR.
[2021-11-23] MEDS: QUETIAPINE FUMARATE 25 MG TABLET PO SCH (21:30)
[2021-11-23] MEDS: ATORVASTATIN 40 MG TABLET PO SCH (21:30)
[2021-11-24 08:00] VITALS: BP 129/64
[2021-11-24] MEDS: FAMOTIDINE (20 MG) 20 MG TABLET PO SCH (08:30)
[2021-11-24] MEDS: DIVALPROEX SODIUM 125 MG CAP.SPRINK PO SCH ×2 (08:30→20:36)
[2021-11-24] MEDS: LOSARTAN POTASSIUM 50 MG TABLET PO SCH (08:31)
[2021-11-24] MEDS: CARVEDILOL 3.125 MG TABLET PO SCH (08:31)
--- NOTE | 2021-11-24 09:40 | NUR ---
RN Notes: Received pt. asleep in bed, breathing is even and unlabored. Ate 100% for breakfast, compliant on meds. Pt. is confused and was reoriented to person, place, day, date and situation and encouraged to take shower. Needs attended, no distress and no agitation noted. Will continue to monitor for safety.
[2021-11-24] MEDS: ACETAMINOPHEN 325 MG TABLET PO PRN (14:42)
[2021-11-24 16:00] VITALS: BP 131/66
[2021-11-24 20:15] VITALS: BP_SYST 127; BP_SYST 144; BP_DIAS 70
[2021-11-24] MEDS: ATORVASTATIN 40 MG TABLET PO SCH (21:35)
[2021-11-24] MEDS: QUETIAPINE FUMARATE 25 MG TABLET PO SCH (21:35)
--- NOTE | 2021-11-24 22:00 | NUR ---
RN NOTES: PATIENT IN BED RESTING , NO S/SX OF ACUTE DISTRESS NOTED. EASILY AGITATED, PARANOID, DISORGNIZED, DISHEVELED, NEEDS FREQUENTLY REDIRECTIONS , NEEDY,HYPERVERBAL ,ENCOURAGED PT. TO VERBALIZATION OF THOUGHTS AND FEELINGS. SAFETY PRECAUTIONS IN PLACE. WILL CONTINUE TO MONITOR Q15MIN ROUNDS FOR SAFETY AND BEHAVIOR.
[2021-11-25 08:00] VITALS: BP 116/78
[2021-11-25] MEDS: CARVEDILOL 3.125 MG TABLET PO SCH (08:56)
[2021-11-25] MEDS: FAMOTIDINE (20 MG) 20 MG TABLET PO SCH (08:56)
[2021-11-25] MEDS: DIVALPROEX SODIUM 125 MG CAP.SPRINK PO SCH ×2 (08:56→21:27)
[2021-11-25] MEDS: LOSARTAN POTASSIUM 50 MG TABLET PO SCH (08:57)
[2021-11-25 16:00] VITALS: BP 151/63
--- NOTE | 2021-11-25 19:50 | NUR ---
GPS RN OPENING NOTES: RECEIVED PATIENT IN DAY ROOM WATCHING TV. APPEARS DEPRESSED, FLAT AFFECT, ANXIOUS, PASSIVE, DISORGANIZED. NO S/S OF DISTRESS. RESPIRATION EVEN AND UNLABORED WITH EQUAL RISE AND FALL OF THE CHEST, ON ROOM AIR. OFFERED FLUID AND SNACKS TOLERATED. WILL CONTINUE TO MONITOR Q15 FOR MOOD, SAFETY AND BEHAVIOR.
[2021-11-25 20:20] VITALS: BP 131/53
[2021-11-25] MEDS: QUETIAPINE FUMARATE 25 MG TABLET PO SCH (21:27)
[2021-11-25] MEDS: ATORVASTATIN 40 MG TABLET PO SCH (21:27)
--- NOTE | 2021-11-25 22:55 | NUR ---
GPS RN NOTES: WEEKLY SKIN ASSESSMENT DONE. SKIN INTACT.
--- NOTE | 2021-11-26 06:57 | NUR ---
GPS RN CLOSING NOTES: PATIENT IS CURRENTLY SLEEPING IN BED. PATIENT SLEPT 7HRS THIS SHIFT. NO S/S OF DISTRESS. RESPIRATION EVEN AND UNLABORED WITH EQUAL RISE AND FALL OF THE CHEST, ON ROOM AIR. BED IN LOW LOCKED POSITION, SIDE RAILS UP X2 FOR SAFETY, CALL WALKER WITHIN REACH. ALL PATIENT CARE NEEDS HAVE BEEN MET ANTICIPATED. WILL CONTINUE TO MONITOR Q15 FOR SAFETY, MOOD, AND BEHAVIOR AND ENDORSE TO AM SHIFT.
[2021-11-26] MEDS: FAMOTIDINE (20 MG) 20 MG TABLET PO SCH (07:54)
[2021-11-26 08:00] VITALS: BP 142/73
[2021-11-26] MEDS: DIVALPROEX SODIUM 125 MG CAP.SPRINK PO SCH ×2 (08:31→21:37)
[2021-11-26] MEDS: LOSARTAN POTASSIUM 50 MG TABLET PO SCH (08:32)
[2021-11-26] MEDS: CARVEDILOL 3.125 MG TABLET PO SCH (08:32)
--- NOTE | 2021-11-26 09:39 | NUR ---
RN-CO: RECEIVED PATIENT AWAKE, DENIED PAIN AND DISCOMFORTS. CALM AND COOPERATIVE TO CARE. NEEDS PROMPTS IN ADL.WE WILL CONTINUE TO MONITOR.
[2021-11-26 16:00] VITALS: BP_SYST 123; BP_SYST 154; BP_DIAS 75; BP_DIAS 82
--- NOTE | 2021-11-26 19:33 | NUR ---
GPS RN OPENING NOTES: RECEIVED PATIENT IN HALLWAY, AWAKE, A/O X1. ANXIOUS, RESTLESS, DISORGANIZED, DISORIENTED AND CONFUSED. COOPERATIVE. NO S/S OF DISTRESS. RESPIRATION EVEN AND UNLABORED WITH EQUAL RISE AND FALL OF THE CHEST, ON ROOM AIR. OFFERED FLUID AND SNACKS TOLERATED. WILL CONTINUE TO MONITOR Q15 FOR MOOD, SAFETY AND BEHAVIOR.
[2021-11-26] MEDS: QUETIAPINE FUMARATE 25 MG TABLET PO SCH (21:37)
[2021-11-26] MEDS: ATORVASTATIN 40 MG TABLET PO SCH (21:37)
[2021-11-26 22:25] VITALS: BP 110/53
[2021-11-27 06:41] VITALS: BP 110/53
[2021-11-27 08:00] VITALS: BP 125/78
--- NOTE | 2021-11-27 09:23 | NUR ---
SNF Contact: ALEX spoke with Rudy Boyer from [facility] ([phone]) who stated that pt is accepted. He requested updated clinicals ([phone]).
--- NOTE | 2021-11-27 09:28 | NUR ---
ALEX Family Contact: SW attempted to contact pt's son Anderson ([phone]) and was unable to leave a voicemail due to mailbox being full.
[2021-11-27] MEDS: DIVALPROEX SODIUM 125 MG CAP.SPRINK PO SCH ×2 (09:30→21:39)
[2021-11-27] MEDS: FAMOTIDINE (20 MG) 20 MG TABLET PO SCH (09:31)
[2021-11-27] MEDS: LOSARTAN POTASSIUM 50 MG TABLET PO SCH (09:31)
[2021-11-27] MEDS: CARVEDILOL 3.125 MG TABLET PO SCH (09:31)
--- NOTE | 2021-11-27 14:19 | NUR ---
quiet,med compliant.
[2021-11-27 16:00] VITALS: BP 141/78
[2021-11-27] MEDS: ACETAMINOPHEN 325 MG TABLET PO PRN (16:43)
[2021-11-27 20:00] VITALS: BP 110/64
[2021-11-27] MEDS: ATORVASTATIN 40 MG TABLET PO SCH (21:39)
[2021-11-27] MEDS: QUETIAPINE FUMARATE 25 MG TABLET PO SCH (21:39)
--- NOTE | 2021-11-27 22:08 | NUR ---
GPS RN OPENING NOTES: RECEIVED PATIENT PACING IN HALLWAY, A/O X1. FLAT AFFECT, ANXIOUS, RESTLESS, DISORGANIZED, DISORIENTED.. COOPERATIVE, RAMBLING, CONFUSED BUT REDIRECTABLE. NO S/S OF DISTRESS. NO C/O PAIN. RESPIRATION EVEN AND UNLABORED WITH EQUAL RISE AND FALL OF THE CHEST, ON ROOM AIR. OFFERED FLUID AND SNACKS TOLERATED. WILL CONTINUE TO MONITOR Q15 FOR MOOD, SAFETY AND BEHAVIOR.
--- NOTE | 2021-11-28 07:06 | NUR ---
GPS RN CLOSING NOTES: PATIENT IS CURRENTLY SLEEPING IN BED. PATIENT SLEPT 8HRS THIS SHIFT. NO S/S OF DISTRESS. RESPIRATION EVEN AND UNLABORED WITH EQUAL RISE AND FALL OF THE CHEST, ON ROOM AIR. BED IN LOW LOCKED POSITION, SIDE RAILS UP X2 FOR SAFETY, CALL WALKER WITHIN REACH. ALL PATIENT CARE NEEDS HAVE BEEN MET ANTICIPATED. WILL CONTINUE TO MONITOR Q15 FOR SAFETY, MOOD, AND BEHAVIOR AND ENDORSE TO AM SHIFT.
[2021-11-28 08:00] VITALS: BP 132/58
[2021-11-28] MEDS: FAMOTIDINE (20 MG) 20 MG TABLET PO SCH (08:02)
[2021-11-28] MEDS: CARVEDILOL 3.125 MG TABLET PO SCH (08:15)
[2021-11-28] MEDS: LOSARTAN POTASSIUM 50 MG TABLET PO SCH (08:15)
[2021-11-28] MEDS: DIVALPROEX SODIUM 125 MG CAP.SPRINK PO SCH ×2 (08:16→21:19)
--- NOTE | 2021-11-28 10:02 | NUR ---
ALEX Family Contact: SW attempted to contact pt's son Anderson ([phone]) and was unable to leave a voicemail due to mailbox being full.
--- NOTE | 2021-11-28 10:03 | NUR ---
RN-CO: Patient is visible in the unit, able to make needs known. He denied pain and discomforts. He is calm and cooperative to care. We will continue plan of care.
[2021-11-28 16:00] VITALS: BP 120/68
--- NOTE | 2021-11-28 19:13 | NUR ---
GPS RN NOTES PATIENT IS VISIBLE IN THE UNIT. A/OX2, NO S/SX OF ACUTE DISTRESS NOTED. ABLE TO MAKE NEEDS KNOWN. PATIENT IS CALM, COOPERATIVE TO CARE, FORGETFUL. SAFETY PRECAUTIONS IN PLACE. REORIENTATION PROVIDED. WILL CONTINUE TO MONITOR Q15MIN ROUNDS FOR SAFETY AND BEHAVIOR.
[2021-11-28 20:00] VITALS: BP 138/61
[2021-11-28] MEDS: ATORVASTATIN 40 MG TABLET PO SCH (21:19)
[2021-11-28] MEDS: QUETIAPINE FUMARATE 25 MG TABLET PO SCH (21:19)
[2021-11-29 08:00] VITALS: BP 127/76
[2021-11-29] MEDS: LOSARTAN POTASSIUM 50 MG TABLET PO SCH (08:08)
[2021-11-29] MEDS: DIVALPROEX SODIUM 125 MG CAP.SPRINK PO SCH ×2 (08:08→21:15)
[2021-11-29] MEDS: CARVEDILOL 3.125 MG TABLET PO SCH (08:08)
[2021-11-29] MEDS: FAMOTIDINE (20 MG) 20 MG TABLET PO SCH (08:09)
--- NOTE | 2021-11-29 09:30 | NUR ---
RN Notes: Received pt. awake in bed, pleasant upon approached. Ate 100% for breakfast, compliant on meds. Encouraged to verbalize feelings and motivated to attend group activity. Needs attended, no distress and no agitation noted. Will continue to monitor for safety.
--- NOTE | 2021-11-29 10:29 | NUR ---
ALEX Family Contact: SW attempted to contact pt's son Anderson ([phone]) and was unable to leave a voicemail due to mailbox being full.
[2021-11-29 16:00] VITALS: BP 133/76
[2021-11-29 19:40] VITALS: BP 130/72
[2021-11-29 20:00] VITALS: BP 130/72
[2021-11-29] MEDS: ATORVASTATIN 40 MG TABLET PO SCH (21:38)
[2021-11-29] MEDS: QUETIAPINE FUMARATE 25 MG TABLET PO SCH (21:54)
--- NOTE | 2021-11-30 06:30 | NUR ---
COVID 19 ANTIGEN SPECIMEN SENT TO LAB.
--- NOTE | 2021-11-30 07:46 | NUR ---
Kelton Reynolds FEATHEREDGER AND REDUCER MACHINE gave an order to D/C Hold and D/C to [facility] and to follow up with psych and medical doctors. FEATHEREDGER AND REDUCER MACHINE reconciled meds to continue in the facility.
[2021-11-30 08:00] VITALS: BP 126/68
--- NOTE | 2021-11-30 08:02 | NUR ---
SW Discharge Note: [facility] located at [address] [place] [address]; ([phone]). Please arrange transportation via ambulance. Fuel Cell Technician spoke with Rudy Boyer ([phone]) who stated patient will be accepted at facility today. Patients is aware and agreeable. Patient is alert and oriented x2. Patient denies suicidal or homicidal ideation. SW attempted to contact pt's son Anderson ([phone]) and was unable to leave a voicemail due to mailbox being full. Patient will follow-up with (Psychiatrist) Dr. Laws located at [address] [address]; ([phone]) and (Barrel Builder) Dr. Hein located at [address] [place] [address]; ([phone]). Patient presents with euthymic mood and congruent affect.
[2021-11-30] MEDS: LOSARTAN POTASSIUM 50 MG TABLET PO SCH (08:03)
[2021-11-30 08:04] VITALS: BP 126/68
[2021-11-30] MEDS: CARVEDILOL 3.125 MG TABLET PO SCH (08:04)
[2021-11-30] MEDS: DIVALPROEX SODIUM 125 MG CAP.SPRINK PO SCH (08:05)
[2021-11-30] MEDS: FAMOTIDINE (20 MG) 20 MG TABLET PO SCH (08:05)
--- NOTE | 2021-11-30 13:32 | NUR ---
RN-DISCHARGE NOTES PATIENT WAS DISCHARGE TO [facility] EMILEE BANUELOS MEDICALLY CLEARED PATIENT FOR DISCHARGE. PATIENT LEFT THE UNIT IN STABLE CONDITION A/O X1 AMBULATORY STEADY GAIT. PATIENT DID NOT VERBALIZE SI/HI,DENIES VISUAL /AUDITORY HALLUCINATIONS AT THE TIME OF DISCHARGE. REPORT WAS GIVEN TO CL ( CORNER CUTTER MACHINE OPERATOR). PATIENT WAS DIRECTOR ACCOUNT MANAGEMENT BY AMBULANCE VIA Private[employer]NEY WITH TWO STAFF ASSIST. PATIENT LEFT THE UNIT WITH ALL HIS BELONGINGS INCLUDING GROVER MONEY OF $680.00,X1 YELLOW WATCH,WALLET X1 BLACK CELLPHONE AND ALL OTHER BELONGINGS AND WAS ENDORSE TO THE AMBULANCE STAFF( DAVY). VITAL SIGN FF: BP 139/78,P 80 ,R 17,O2 98% RA.PER SW NOTES PATIENT'S SON (LETA) WAS NOT UNSWEARING THE PHONE AND THE VOICE MAIL WAS FULL UNABLE TO LEAVE MESSAGE .
== END 2021-11-30 13:30 | DRG 885 ==
LOC: ER 19:31 → GPS 21:43
PROVIDERS: ADMIT Psychiatry & Neurology Psychiatry; ATTEND Internal Medicine
DX: F25.9 Schizoaffective disorder, unspecified (principal); N18.9 Chronic kidney disease, unspecified; F02.81 Dementia in other diseases classified elsewhere, unspecified severity, with behavioral disturbance; F29 Unspecified psychosis not due to a substance or known physiological condition; D69.6 Thrombocytopenia, unspecified; I12.9 Hypertensive chronic kidney disease with stage 1 through stage 4 chronic kidney disease, or unspecified chronic kidney disease; G30.9 Alzheimer's disease, unspecified; Z79.899 Other long term (current) drug therapy; Z20.822 Contact with and (suspected) exposure to COVID-19; Z73.6 Limitation of activities due to disability; E87.6 Hypokalemia; R79.89 Other specified abnormal findings of blood chemistry; F41.9 Anxiety disorder, unspecified; E78.5 Hyperlipidemia, unspecified; G40.909 Epilepsy, unspecified, not intractable, without status epilepticus; K21.9 Gastro-esophageal reflux disease without esophagitis
CPT/HCPCS: 36415; 80048-TC; 80053-TC; 80061-TC; 80076-TC; 80164-TC; 81001; 82962-TC; 84439-TC; 84443-TC; 85025-TC; 87081-TC; C9803; G0480